=== PATIENT | male | born 1980 | race Caucasian/White ===

== ENCOUNTER 2018-03-01 12:46 | Outpatient (CLI) | payer OTHER | END 2018-03-01 12:55 | disposition home or self-care (01) | LOC: SONOGRAMA 12:46 → MAMO-SONO 13:15 | DX: M25.511 Pain in right shoulder (principal) ==

== ENCOUNTER 2020-02-22 13:48 | Outpatient (CLI) | payer OTHER | END 2020-02-22 14:17 | disposition home or self-care (01) | LOC: RAD 13:48 | PROVIDERS: ATTEND Physical Medicine & Rehabilitation Hospice and Palliative Medicine | DX: E04.2 Nontoxic multinodular goiter (principal); M62.830 Muscle spasm of back ==

== ENCOUNTER 2020-08-21 08:30 | Outpatient (CLI) | payer OTHER | END 2020-08-21 08:36 | disposition home or self-care (01) | LOC: SONOGRAMA 08:30 | PROVIDERS: ATTEND Internal Medicine | DX: R59.0 Localized enlarged lymph nodes (principal); E04.8 Other specified nontoxic goiter ==

== ENCOUNTER 2024-02-10 08:22 | Outpatient (CLI) | payer OTHER | END 2024-02-10 08:32 | disposition home or self-care (01) | LOC: SONOGRAMA 08:22 | PROVIDERS: ATTEND Physical Medicine & Rehabilitation Hospice and Palliative Medicine | DX: M25.512 Pain in left shoulder (principal); M75.42 Impingement syndrome of left shoulder; M75.102 Unspecified rotator cuff tear or rupture of left shoulder, not specified as traumatic ==